=== PATIENT | male | born 1935 | race Caucasian/White ===

== ENCOUNTER 2020-09-02 11:16 | Emergency (ER) | payer MEDICARE, OTHER ==
[~2020-09-02] VITALS: Ht 172.7 cm; Wt 59.0 kg
[2020-09-02] MEDS ORDERED: ELIQUIS2.5 MG PO (11:37)
[2020-09-02] MEDS ORDERED: LIPITOR10 MG PO (11:37)
[2020-09-02] MEDS ORDERED: FUROSEMIDE 20 M20 MG PO (11:37)
[2020-09-02] MEDS ORDERED: VIBRAMYCIN 100100 MG PO (11:51)
[2020-09-02 12:09] VITALS: BP 99/48
== END 2020-09-02 12:00 | disposition home or self-care (01) ==
LOC: M.ERS 11:16
DX: T63.301A Toxic effect of unspecified spider venom, accidental (unintentional), initial encounter (principal); E11.9 Type 2 diabetes mellitus without complications; Z95.5 Presence of coronary angioplasty implant and graft; Z88.0 Allergy status to penicillin; Z79.899 Other long term (current) drug therapy; Y93.89 Activity, other specified; Y92.89 Other specified places as the place of occurrence of the external cause; Y99.8 Other external cause status